=== PATIENT | male | born 1970 | race Caucasian/White ===

== ENCOUNTER 2016-10-04 15:33 | Outpatient (CLI) | payer BC ==
--- NOTE | 2016-10-04 16:40 | Diagnostic Imaging Report ---
[facility] [id number] [facility].[address] [id number] Report Submission Date: October 04, 2016 3:56:57 PM CDT Patient Study Name: ALISIA OVALLE Date: October 04, 2016 3:39:18 PM CDT Modality Type: CR Gender: M Description: SHOULDER : 66 Institution: [facility] Physician: CEDRIC ZHOU - MAGAN Left shoulder - three views Clinical history: Injury. Pain and swelling. Decreased range of motion. Findings: Examination left shoulder multiple views demonstrates mild degenerative changes in the acromioclavicular and glenohumeral joints. There is no evident fracture. There is no lytic or blastic lesion. Impression: 1. Degenerative changes. 2. No fracture. Electronically signed on October 04, 2016 3:56:57 PM CDT by: Nico WHITE
== END 2016-10-04 15:34 ==
LOC: RAD 15:33
PROVIDERS: ATTEND Family Medicine
DX: M25.512 Pain in left shoulder (principal); M25.412 Effusion, left shoulder
CPT/HCPCS: 73030